=== PATIENT | male | born 1960 | race Two or more races ===

== ENCOUNTER 2017-07-21 02:22 | Emergency (ER) | payer SELFPAY ==
[~2017-07-21] VITALS: Ht 165.1 cm; Wt 77.1 kg
[2017-07-21 03:35] VITALS: BP 120/70
[2017-07-21 03:40] VITALS: BP 120/70
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
[2017-07-21] MEDS ORDERED: Bacitracin Oint UD TOPIC ONE (03:45)
== END 2017-07-21 03:40 | disposition home or self-care (01) ==
LOC: EDBD 02:22 → EMR 02:39
DX: F10.129 Alcohol abuse with intoxication, unspecified (principal); S00.81XA Abrasion of other part of head, initial encounter; S61.011A Laceration without foreign body of right thumb without damage to nail, initial encounter; X58.XXXA Exposure to other specified factors, initial encounter; Y92.9 Unspecified place or not applicable
CPT/HCPCS: 99284